=== PATIENT | female | born 1990 | race Native Hawaiian/Other Pacific Islander ===

== ENCOUNTER 2018-09-07 07:37 | Emergency (ER) | payer MEDICAID ==
[~2018-09-07] VITALS: Ht 165.1 cm; Wt 97.5 kg
[2018-09-07 07:46] VITALS: Ht 165.1 cm; Wt 97.5 kg
[2018-09-07 09:26] VITALS: BP 127/75
== END 2018-09-07 09:26 | disposition home or self-care (01) ==
LOC: ED 07:37
DX: F41.9 Anxiety disorder, unspecified (principal); F43.9 Reaction to severe stress, unspecified; F17.210 Nicotine dependence, cigarettes, uncomplicated
CPT/HCPCS: Q0092